=== PATIENT | female | born 1995 | race Two or more races ===

== ENCOUNTER 2017-11-27 01:23 | Emergency (ER) | payer MEDICAID, OTHER ==
[2017-11-27] MEDS ORDERED: Sodium Chloride 0.9% 1,000 ML IV SCH (01:45)
[2017-11-27] MEDS ORDERED: Sodium Chloride 0.9% 10 ML Syringe FLUSH PRN (01:46)
--- NOTE | 2017-11-27 01:53 | EDM.PDOCBH ---
ED HPI GENERAL MEDICAL PROBLEM - General Chief Complaint: Drug or Alcohol Abuse Stated Complaint: OD Time Seen by Provider: 11/27/17 01:40 Source of Information: Reports: EMS, Significant Other History Limitations: Reports: No Limitations - History of Present Illness INITIAL COMMENTS - FREE TEXT/NARRATIVE: Per boyfriend, patient took Benadryl 100mg @12 midnoc for unknown reason. He thinks perhaps she took the Benadryl because she is allergic to wine and did consume wine this evening. He is although unsure as the patient did not state a reason for the overdose to him. Patient is very drowsy and is unable to answer questions. Onset: Today Onset Date: 11/27/17 Onset Time: 00:00 - Related Data Allergies Allergy/AdvReac Type Severity Reaction Status Date / Time No Known Allergies Allergy Verified 11/27/17 02:41 Home Meds: Home Meds Sulfamethoxazole/Trimethoprim [Bactrim Ds Tablet] 1 each PO BID #14 tablet 11/27 [Rx] Past Medical History Gastrointestinal History: Reports: Other (See Below) Other Gastrointestinal History: crohn's disease Social & Family History - Tobacco Use Smoking Status *Q: Current Every Day Smoker Tobacco Use Within Last Twelve Months: Cigarettes - Alcohol Use Alcohol Use History: Yes - Recreational Drug Use Recreational Drug Use: No ED ROS GENERAL - Review of Systems Review Of Systems: Unable To Obtain (to to ALOC) ED EXAM, BEHAVIORAL HEALTH - Physical Exam Exam: See Below Exam Limited By: Altered Mental Status General Appearance: Lethargic Eye Exam: Bilateral Eye: EOMI, PERRL Ears: Normal External Exam Nose: Normal Inspection Throat/Mouth: No Airway Compromise Head: Atraumatic, Normocephalic Neck: Supple Respiratory/Chest: No Respiratory Distress, Lungs Clear, Normal Breath Sounds Cardiovascular: Regular Rate, Rhythm, No Murmur GI/Abdominal: No Distention Extremities: Normal Inspection Neurological: No Motor/Sensory Deficits, Other (GCS 10) Psychiatric: Other (somnolent) Skin Exam: Warm, Dry, Intact EKG INTERPRETATION EKG Date: 11/27/17 Time: 01:46 Rhythm: NSR Rate (Beats/Min): 91 [place]: Normal P-Wave: Present QRS: Normal ST-T: Normal QT: Normal COURSE, BEHAVIORAL HEALTH COMP - Course Vital Signs: Last Vital Signs Temp 37.1 C 11/27/17 01:24 Pulse 82 11/27/17 01:24 Resp 14 11/27/17 01:24 BP 127/93 H 11/27/17 01:24 Pulse Ox 100 11/27/17 01:24 Orders, Labs, Meds: Active Orders 24 hr Category Date Time Status EKG Documentation Completion [RC] ASDIRECTED Care 11/27/17 01:44 Active Kenny Catheter Insertion [Insert Urinary Catheter] [OM. Care 11/27/17 01:45 Ordered PC] Q24H Telemetry Monitoring [Cardiac Monitoring] [RC] .As Care 11/27/17 01:46 Active Directed Urinary Catheter Assessment [RC] QSHIFT Care 11/27/17 01:46 Active HCG QUALITATIVE,URINE [URCHEM] Stat Lab 11/27/17 02:30 Ordered UA W/MICROSCOPIC [URIN] Stat Lab 11/27/17 02:30 Ordered Sodium Chloride 0.9% [Normal Saline] 1,000 ml Med 11/27/17 01:45 Active IV ASDIRECTED Sodium Chloride 0.9% [Saline Flush] Med 11/27/17 01:46 Active 10 ml FLUSH ASDIRECTED PRN Saline Lock Insert [OM.PC] Routine Oth 11/27/17 01:46 Ordered EKG 12 Lead [EK] Stat Ther 11/27/17 01:43 Ordered Medication Orders Sodium Chloride (Normal Saline) 1,000 mls @ 200 mls/hr IV ASDIRECTED PIERRE Last Admin: 11/27/17 02:14 Dose: 200 mls/hr Sodium Chloride (Saline Flush) 10 ml FLUSH ASDIRECTED PRN PRN Reason: Keep Vein Open Last Admin: 11/27/17 02:13 Dose: 10 ml Laboratory Tests 11/27/17 11/27/17 11/27/17 Range/Units 02:05 02:05 02:05 WBC 4.1 L (4.5-12.0) X10-3/uL RBC 5.07 (3.23-5.20) x10(6)uL Hgb 15.6 H (11.5-15.5) g/dL Hct 46.1 (30.0-51.3) % MCV 91.0 (80-96) fL MCH 30.7 (27.7-33.6) pg MCHC 33.7 (32.2-35.4) g/dL RDW 14.3 (11.5-15.5) % Plt Count 333 (125-369) X10(3)uL MPV 7.7 (7.4-10.4) fL Add Manual Diff Yes Neutrophils % (Manual) 34 L (46-82) % Band Neutrophils % 2 (0-6) % Lymphocytes % (Manual) 55 H (13-37) % Monocytes % (Manual) 5 (4-12) % Eosinophils % (Manual) 4 (0-5) % Sodium 139 (135-145) mmol/L Potassium 3.7 (3.5-5.3) mmol/L Chloride 104 (100-110) mmol/L Carbon Dioxide 24 (21-32) mmol/L BUN 6 L (7-18) mg/dL Creatinine 0.8 (0.55-1.02) mg/dL Est Cr Clr Drug Dosing TNP Estimated GFR (MDRD) > 60 (>60) BUN/Creatinine Ratio 7.5 L (9-20) Glucose 89 (80-116) mg/dL Calcium 8.7 (8.6-10.2) mg/dL Magnesium (1.8-2.5) mg/dL Total Bilirubin 0.4 (0.1-1.3) mg/dL AST 143 H (5-25) IU/L ALT 99 H (12-36) U/L Alkaline Phosphatase 74 (56-112) IU/L Total Protein 9.3 H (6.0-8.0) g/dL Albumin 4.2 (3.5-5.2) g/dL Globulin 5.1 g/dL Albumin/Globulin Ratio 0.8 Urine Color (YELLOW) Urine Appearance (CLEAR) Urine pH (5.0-6.5) Ur Specific [place] (1.010-1.025) Urine Protein (NEGATIVE) mg/dL Urine Glucose (UA) (NEGATIVE) mg/dL Urine Ketones (NEGATIVE) mg/dL Urine Occult Blood (NEGATIVE) Urine Nitrite (NEGATIVE) Urine Bilirubin (NEGATIVE) Urine Urobilinogen (NEGATIVE) mg/dL Ur Leukocyte Esterase (NEGATIVE) Urine RBC (0) Urine WBC (0) Ur Squamous Epith Cells (NS,R,O) Urine Bacteria (NS) Urine HCG, Qual (NEGATIVE) Salicylates 2.1 L (2.8-20.0) mg/dL Acetaminophen < 2 L (10-30) ug/mL Ethyl Alcohol 0.28 H* (<0.03) % 11/27/17 11/27/17 11/27/17 Range/Units 02:05 02:30 02:30 WBC (4.5-12.0) X10-3/uL RBC (3.23-5.20) x10(6)uL Hgb (11.5-15.5) g/dL Hct (30.0-51.3) % MCV (80-96) fL MCH (27.7-33.6) pg MCHC (32.2-35.4) g/dL RDW (11.5-15.5) % Plt Count (125-369) X10(3)uL MPV (7.4-10.4) fL Add Manual Diff Neutrophils % (Manual) (46-82) % Band Neutrophils % (0-6) % Lymphocytes % (Manual) (13-37) % Monocytes % (Manual) (4-12) % Eosinophils % (Manual) (0-5) % Sodium (135-145) mmol/L Potassium (3.5-5.3) mmol/L Chloride (100-110) mmol/L Carbon Dioxide (21-32) mmol/L BUN (7-18) mg/dL Creatinine (0.55-1.02) mg/dL Est Cr Clr Drug Dosing Estimated GFR (MDRD) (>60) BUN/Creatinine Ratio (9-20) Glucose (80-116) mg/dL Calcium (8.6-10.2) mg/dL Magnesium 2.1 (1.8-2.5) mg/dL Total Bilirubin (0.1-1.3) mg/dL AST (5-25) IU/L ALT (12-36) U/L Alkaline Phosphatase (56-112) IU/L Total Protein (6.0-8.0) g/dL Albumin (3.5-5.2) g/dL Globulin g/dL Albumin/Globulin Ratio Urine Color Yellow (YELLOW) Urine Appearance Slightly cloudy (CLEAR) Urine pH 7.0 H (5.0-6.5) Ur Specific [place] 1.020 (1.010-1.025) Urine Protein Negative (NEGATIVE) mg/dL Urine Glucose (UA) Normal (NEGATIVE) mg/dL Urine Ketones Negative (NEGATIVE) mg/dL Urine Occult Blood Moderate H (NEGATIVE) Urine Nitrite Positive H (NEGATIVE) Urine Bilirubin Negative (NEGATIVE) Urine Urobilinogen Normal (NEGATIVE) mg/dL Ur Leukocyte Esterase Small H (NEGATIVE) Urine RBC 5-10 (0) Urine WBC 5-10 (0) Ur Squamous Epith Cells Few H (NS,R,O) Urine Bacteria Moderate H (NS) Urine HCG, Qual Negative (NEGATIVE) Salicylates (2.8-20.0) mg/dL Acetaminophen (10-30) ug/mL Ethyl Alcohol (<0.03) % Medications Generic Name Dose Route Start Last Admin Trade Name Freq PRN Reason Stop Dose Admin Sodium Chloride 1,000 mls @ 200 mls/hr 11/27/17 01:45 11/27/17 02:14 Normal Saline IV 200 mls/hr ASDIRECTED PIERRE Administration Sodium Chloride 10 ml 11/27/17 01:46 11/27/17 02:13 Saline Flush FLUSH 10 ml ASDIRECTED PRN Administration Keep Vein Open Re-Assessment/Re-Exam: 0540: Patient is awake, A+Ox3, GCS 15. She states she took the Benadryl to sleep because she has been having difficulty sleeping lately. She denies suicidal attempt or ideation. Patient also relates she is currently menstruating. Departure - Departure Time of Disposition: 05:46 Disposition: Home, Self-Care 01 Condition: Good Clinical Impression: Alcohol intoxication Qualifiers: Complication of substance-induced condition: uncomplicated Qualified Code(s): F10.920 - Alcohol use, unspecified with intoxication, uncomplicated Antihistamines overdose Qualifiers: Encounter type: initial encounter Injury intent: accidental or unintentional Qualified Code(s): T45.0X1A - Poisoning by antiallergic and antiemetic drugs, accidental (unintentional), initial encounter UTI (urinary tract infection) Qualifiers: Urinary tract infection type: acute cystitis Hematuria presence: with hematuria Qualified Code(s): N30.01 - Acute cystitis with hematuria - Discharge Information *PRESCRIPTION DRUG MONITORING PROGRAM REVIEWED*: No *COPY OF PRESCRIPTION DRUG MONITORING REPORT IN PATIENT SERINA: Not Applicable Prescriptions: Sulfamethoxazole/Trimethoprim [Bactrim Ds Tablet] 1 each PO BID #14 tablet Instructions: Alcohol Intoxication, [id number], Accidental Overdose Referrals: PCP,Unknown [Primary Care Provider] - Forms: ED Department Discharge Additional Instructions: Avoid excessive alcohol intake, do not take Benadryl with alcohol. If you do take Benadryl to sleep, take no more than 50 mg every 6 hours. Follow up with your doctor in 3-4 days. Return to the ER as needed. - My Orders Last 24 Hours: My Active Orders 11/27/17 01:43 EKG 12 Lead [EK] Stat 11/27/17 01:44 EKG Documentation Completion [RC] ASDIRECTED 11/27/17 01:45 Kenny Catheter Insertion [Insert Urinary Catheter] [OM.PC] Q24H Sodium Chloride 0.9% [Normal Saline] 1,000 ml IV ASDIRECTED 11/27/17 01:46 Telemetry Monitoring [Cardiac Monitoring] [RC] .As Directed Urinary Catheter Assessment [RC] QSHIFT Sodium Chloride 0.9% [Saline Flush] 10 ml FLUSH ASDIRECTED PRN Saline Lock Insert [OM.PC] Routine 11/27/17 02:30 HCG QUALITATIVE,URINE [URCHEM] Stat UA W/MICROSCOPIC [URIN] Stat - Assessment/Plan Last 24 Hours: My Active Orders 11/27/17 01:43 EKG 12 Lead [EK] Stat 11/27/17 01:44 EKG Documentation Completion [RC] ASDIRECTED 11/27/17 01:45 Kenny Catheter Insertion [Insert Urinary Catheter] [OM.PC] Q24H Sodium Chloride 0.9% [Normal Saline] 1,000 ml IV ASDIRECTED 11/27/17 01:46 Telemetry Monitoring [Cardiac Monitoring] [RC] .As Directed Urinary Catheter Assessment [RC] QSHIFT Sodium Chloride 0.9% [Saline Flush] 10 ml FLUSH ASDIRECTED PRN Saline Lock Insert [OM.PC] Routine 11/27/17 02:30 HCG QUALITATIVE,URINE [URCHEM] Stat UA W/MICROSCOPIC [URIN] Stat
[2017-11-27 02:50] LABS: ACETAMINOPHEN < 2 ug/mL (10-30)
== END 2017-11-27 06:10 | disposition home or self-care (01) ==
LOC: FB.ED 01:23
DX: T45.0X1A Poisoning by antiallergic and antiemetic drugs, accidental (unintentional), initial encounter (principal); N30.01 Acute cystitis with hematuria; F10.120 Alcohol abuse with intoxication, uncomplicated; Y90.0 Blood alcohol level of less than 20 mg/100 ml
CPT/HCPCS: 36415; 51702; 80053; 81001; 81025; 83735; 85025; 93005; 96360; 96361; 99284; G0480; J7030; J7050